=== PATIENT | female | born 1940 | race Hispanic/Latino ===

== ENCOUNTER → 2019-07-05 | Outpatient (CLI) | payer OTHER ==
--- NOTE | 2019-07-05 09:31 | Diagnostic Imaging Report ---
EXAM: US ABDOMEN COMPLETE DATE: 07/05/2019 8:17 AM INDICATION: Diabetes mellitus, hypertension COMPARISON: None TECHNIQUE: Transverse and longitudinal guaman scale and color doppler sonographic images of the upper abdomen were obtained. FINDINGS: There is no evidence of fluid or masses seen in the area of clinical concern in the right lower quadrant. LIVER 12.8 cm in the right midclavicular line. Increased echogenicity of the liver with normal contour, no masses. SPLEEN 9.0 cm in maximum diameter. Normal echogenicity, no masses. GALLBLADDER Status post cholecystectomy. BILE DUCTS No intra nor extra-hepatic biliary dilation. Common bile duct measures 2 mm PANCREAS: Visualized portions are normal. RIGHT KIDNEY: 9.1 cm Echogenicity: Normal Collecting System: No hydronephrosis Stones: None Cyst/Mass: Anechoic 1.4 x 1.2 x 1.3 cm lower pole simple cyst. LEFT KIDNEY: 10.8 cm Echogenicity: Normal Collecting System: No hydronephrosis Stones: None Cyst/Mass: None VESSELS: Aorta: Visualized portions are within normal size limits Inferior Vena Cava: Visualized portions are normal Main Portal Vein: 1.0 cm, normal size with hepatopetal flow. FREE FLUID: None IMPRESSION: Status post cholecystectomy. Hepatic steatosis. No hydronephrosis or renal calculi. Right renal simple cyst as above. Signed by: Bertram Castañeda MD on 07/05/2019 9:27 AM
== END ==
LOC: US 08:09
PROVIDERS: ATTEND Internal Medicine Gastroenterology
DX: E11.9 Type 2 diabetes mellitus without complications (principal); K83.5 Biliary cyst; I10 Essential (primary) hypertension; Z71.3 Dietary counseling and surveillance; E66.3 Overweight
CPT/HCPCS: 76700

== ENCOUNTER → 2024-03-23 | Outpatient (REF) | payer MEDICARE, OTHER | LOC: RAD 13:32 | PROVIDERS: ATTEND Internal Medicine | DX: M25.551 Pain in right hip (principal) ==

== ENCOUNTER → 2024-05-22 | Outpatient (RCR) | payer MEDICARE, OTHER | LOC: PT 05-16 13:00 | PROVIDERS: ATTEND Physician Assistant | DX: M54.50 Low back pain, unspecified (principal); M53.3 Sacrococcygeal disorders, not elsewhere classified ==

== ENCOUNTER → 2024-06-22 | Outpatient (RCR) | payer MEDICARE, OTHER | LOC: PT 05-26 11:38 | PROVIDERS: ATTEND Physician Assistant | DX: M54.50 Low back pain, unspecified (principal); M53.3 Sacrococcygeal disorders, not elsewhere classified ==

== ENCOUNTER → 2024-11-21 | Outpatient (REF) | payer MEDICARE, OTHER | LOC: RAD 12:30 | PROVIDERS: ATTEND Internal Medicine | DX: M25.561 Pain in right knee (principal) ==